=== PATIENT | female | born 1980 | race Caucasian/White ===

== ENCOUNTER 2023-10-01 06:11 | Emergency (ER) | payer OTHER, SELFPAY ==
[2023-10-01 06:14] VITALS: BP 107/74
[2023-10-01] MEDS: NSS 500 IV (07:03)
--- NOTE | 2023-10-01 07:12 | ED.GENMED ---
History of Present Illness
General
Chief Complaint: Breathing Problem
Source: patient
Exam Limitations: none
Time Seen by Provider: 10/01/23 06:45
Nursing documentation reviewed up to this point in time: agreed with
Travel History
Have you had any contact with someone who has COVID-19?: No
Do you have any symptoms of coronavirus? Fever > 100 degrees, chills, cough, shortness of breath, sore throat, loss of taste or smell, muscle aches, or headache?: No
History of Present Illness
History of Present Illness:
Patient presents to ED secondary to 3-day history of persistent cough, along with shortness of breath and multiple vomiting episodes, associated with coughing spells. Denies fever or chills. Denies diarrhea. Denies chest pain. Denies back pain.
Denies leg pain or swelling. Denies recent travel or surgery. Denies sick contact. Denies recent travel. Patient does not have any significant past medical history.
Review of Systems
Review of Systems
Allergies reviewed?: Yes
All Other Systems: ROS reviewed and negative except as documented in HPI and ROS
Constitutional: Reports no symptoms
EENT: Reports no symptoms
Respiratory: Reports cough and trouble breathing
Cardiac: Reports no symptoms; Denies chest pain
ABD/GI: Reports abdominal pain, nausea and vomiting; Denies diarrhea
: Reports no symptoms
Musculoskeletal: Reports no symptoms; Denies edema
Skin: Reports no symptoms
Neurological: Reports no symptoms
Phy Exam
Physical Exam
Physical Exam:
Physical Exam
General: no apparent distress, not acutely ill. afebrile
Head: nc/at. eomi
Neck: supple. no meningeal signs.
Heart: s1/s2 regular rate and rhythm, no murmur. equal radial pulses.
Lungs: no acute respiratory distress. clear bilaterally
Abdomen: normal bowel sounds. not tender.
Neuro: alert and oriented. no focal neurological deficits
Skin: no rash
Psychiatric: well kept. interactive and cooperative
Extremities: no edema. no calf tenderness.
Course
Orders/Labs/Results
Orders:
Orders
10/01/23 06:51
0.9% Sodium Chloride 500 ml [Nss] 500 ml IV BOLUS
Guaifenesin/Codeine Solution [Robitussin AC] 10 ml PO NOW STA
Ketorolac [Toradol] 30 mg IV NOW STA
CR Chest - 2 Views Urgent
Comment:
Reason For Exam: cough/sob
10/01/23 07:06
Basic Metabolic Panel Urgent
Complete Blood Count/With Diff Urgent
D-Dimer Urgent
HCG, Serum Qualitative Screen Urgent
Comment: ADD ON
Lipase Urgent
10/01/23 07:43
Add On- LAB Urgent
Tests Added?: serum b-hcg, qualitative
Abnormal Lab Results
10/01/23
07:06
D-Dimer 0.51 H ug/mlFEU
(0.00-0.50)
Chloride 109 H mmol/L
(98-107)
Creatinine 0.5 L mg/dL
(0.6-1.0)
Glucose 119 H mg/dl
(70-99)
10/01/23 07:06
10/01/23 07:06
Vital Signs
Initial and Last Documented VS:
Initial Vital Signs
Temp Pulse Resp BP Pulse Ox
97.4 F 74 22 107/74 100
10/01/23 06:14 10/01/23 06:14 10/01/23 06:14 10/01/23 06:14 10/01/23 06:14
Last Documented Vital Signs
Temp Pulse Resp BP Pulse Ox
98.4 F 58 16 88/57 99
10/01/23 09:41 10/01/23 09:41 10/01/23 10:54 10/01/23 09:41 10/01/23 09:41
MDM/Problems Addressed
MDM/Problems Addressed:
Patient with an unremarkable workup in ED, including blood work and chest x-ray. Patient's presenting symptoms likely secondary to ongoing viral upper respiratory infection. As patient is afebrile, hemodynamically stable, without wheezing, without
any evidence of respiratory distress nor dehydration, patient will be discharged home with recommendation for supportive treatment, including continued hydration at home along with cough medication. No indication for antibiotics at this time.
*Critical Care Note
Total Time (30-74mins, 75-104mins- exclusive of procedures): Not Applicable
ED Attending Note
-
Portions of this chart may have been created with voice recognition software.� Occasional wrong word or��sound alike� substitutions may have occurred due to the inherent limitations of voice recognition software.
Discharge Plan
Departure
Patient Disposition: Home (Routine Discharge)
Date of Disposition: 10/01/23
Time of Disposition: 10:41
Patient with high blood pressure during this ER visit?: No
Discharge Problem:
URI (upper respiratory infection)
Instructions: Upper Respiratory Infection ED
Prescriptions:
New
benzonatate 200 mg capsule
200 mg PO TID Qty: 14 0RF
Referrals:
UNKNOWN - PT DOES,NOT KNOW [Family Provider] -
Activity Restrictions/Additional Instructions:
As discussed, please follow-up with your primary care physician with any further concerns. In ED, CXR did not reveal any acute findings. Your prescription has been sent electronically to [facility] in [place].
Interventions
Interventions:
*Risk Screen - Suicide Last Done: 10/01/23 06:49
*General Assessment Last Done: 10/01/23 06:49
*Neglect/Abuse Screening Last Done: 10/01/23 06:49
ED- Fall Risk Assessment Last Done: 10/01/23 06:49
*ED COVID-19 Vaccine History Last Done: 10/01/23 06:49
*Nursing Disposition Last Done: 10/01/23 10:54
ED- Cardiac Assessment Last Done: 10/01/23 06:49
ED- Pulmonary Assessment Last Done: 10/01/23 06:49
Discharge Date and Time
Discharge Date/Time: 10/01/23 10:55
[2023-10-01 07:15] LABS: % Basophils 0.5 % (0-2); % Eosinophils 1.1 % (0-6); % Immature Granulocytes 0.2 % (0-0.5); % Lymphocytes 29.2 % (20.5-51.1); % Monocytes 6.9 % (1.7-9.3); % Neutrophils 62.1 % (42.2-75.2); Absolute Eosinophils 0.1 10^3/uL (0-0.7); Absolute Lymphocytes 1.7 10^3/uL (1.2-3.4); Absolute Monocytes 0.4 10^3/uL (0.1-0.6); Absolute Neutrophils 3.5 10^3/uL (1.4-6.5); Hematocrit 40.9 % (37.0-47.0); Hemoglobin 13.6 g/dL (12.0-16.0); Mean Corp Hgb Conc. 33.3 g/dL (33.0-37.0); Mean Corpuscular Hgb 29.2 pg (27.0-31.0); Mean Corpuscular Volume 87.8 fL (81.0-99.0); Mean Platelet Volume 8.7 fL (7.4-10.4); Nucleated Red Blood Cells % 0 %; Platelet Count 244 10^3/uL (130-400); Red Blood Cell Count 4.66 10^6/uL (4.20-5.40); Red Cell Dist. Width 12.3 % (11.5-14.5); White Blood Cell Count 5.7 10^3/uL (4.8-10.8)
[2023-10-01] MEDS: TORADOL 30 MG IV (07:25)
[2023-10-01] MEDS: ROBITUSSIN AC 10 ML PO (07:25)
[2023-10-01 07:29] LABS: Blood Urea Nitrogen 9 mg/dl (7-17); Calcium 8.9 mg/dl (8.4-10.2); Carbon Dioxide 25 mmol/L (22-30); Chloride 109 mmol/L (98-107); Glucose 119 mg/dl (70-99); Lipase 159 U/L (23-300); Potassium 4.1 mmol/L (3.5-5.1); Sodium 138 mmol/L (135-145); eGFR > 60.00
[2023-10-01 07:30] LABS: D-Dimer 0.51 ug/mlFEU (0.00-0.50)
[2023-10-01 08:42] LABS: HCG, Serum Qualitative Screen Negative
[2023-10-01 09:41] VITALS: BP 88/57
== END 2023-10-01 10:55 | disposition home or self-care (01) ==
LOC: EMR 06:11
PROVIDERS: EMERGENCY PHYSICIAN Emergency Medicine
DX: J06.9 Acute upper respiratory infection, unspecified (principal)
CPT/HCPCS: 99284; 96374; 71046; 80048; 83690; 84703; 85025; 85379

== ENCOUNTER 2024-08-30 19:32 | Emergency (ER) | payer OTHER, SELFPAY ==
[2024-08-30 19:39] VITALS: BP 98/66
[2024-08-30 20:24] LABS: % Basophils 0.2 % (0-2); % Eosinophils 0.8 % (0-6); % Immature Granulocytes 0.2 % (0-0.5); % Lymphocytes 40.7 % (20.5-51.1); % Monocytes 8.4 % (1.7-9.3); % Neutrophils 49.7 % (42.2-75.2); Absolute Monocytes 0.4 10^3/uL (0.1-0.6); Absolute Neutrophils 2.4 10^3/uL (1.4-6.5); Hematocrit 40.8 % (37.0-47.0); Hemoglobin 13.8 g/dL (12.0-16.0); Mean Corp Hgb Conc. 33.8 g/dL (33.0-37.0); Mean Corpuscular Hgb 29.2 pg (27.0-31.0); Mean Corpuscular Volume 86.4 fL (81.0-99.0); Mean Platelet Volume 8.5 fL (7.4-10.4); Nucleated Red Blood Cells % 0 %; Platelet Count 166 10^3/uL (130-400); Red Blood Cell Count 4.72 10^6/uL (4.20-5.40); Red Cell Dist. Width 11.9 % (11.5-14.5); White Blood Cell Count 4.9 10^3/uL (4.8-10.8)
[2024-08-30 20:40] LABS: COVID-19 Antigen Negative (Negative)
[2024-08-30 20:43] LABS: ALT (SGPT) 29 U/L (0-35); AST (SGOT) 30 U/L (14-36); Albumin 4.1 g/dl (3.5-5.0); Alkaline Phosphatase 78 U/L (38-126); Blood Urea Nitrogen 11 mg/dl (7-17); Calcium 8.5 mg/dl (8.4-10.2); Carbon Dioxide 28 mmol/L (22-30); Chloride 101 mmol/L (98-107); Glucose 127 mg/dl (70-99); Sodium 137 mmol/L (135-145); Total Bilirubin 0.7 mg/dl (0.2-1.3); Total Protein 7.1 g/dl (6.3-8.2); eGFR > 60.00
[2024-08-30 20:52] LABS: HCG, Serum Qualitative Screen Negative
--- NOTE | 2024-08-30 23:58 | ED.GENMED ---
History of Present Illness
General
Chief Complaint: Cold/Flu/URI Symptoms
Source: patient and family
Exam Limitations: none
Time Seen by Provider: 08/30/24 21:59
Nursing documentation reviewed up to this point in time: agreed with
History of Present Illness
History of Present Illness:
43-year-old female presenting to the emergency department with upper respiratory symptoms headache body aches over the past 6 days. Has some mild discomfort when coughing but denies any ongoing chest pain no shortness of breath.
Review of Systems
Review of Systems
Allergies reviewed?: Yes
All Other Systems: ROS reviewed and negative except as documented in HPI and ROS
Phy Exam
Physical Exam
Physical Exam:
GENERAL: Alert , in no apparent distress
EYE: pupils equal and reactive
NECK: Supple, no significant adenopathy.
ENT: o/p clr, mmm.
CARDIAC: Regular rate and rhythm .
LUNGS: Hacking cough clear breath sounds bilaterally, no acute respiratory distress, no wheezes/rales/rhonchi
ABDOMEN: Soft, without focal tenderness, no r/g, no cvat
NEUROLOGICAL: Alert and oriented, no focal neuro deficits
SKIN: Warm and dry, skin intact.
MUSCULOSKELETAL: No edema, well perfused.
PSYCH: Normal and appropriate interaction.
Sepsis
Sepsis Screening
Sepsis Assessment: Sepsis Ruled Out
Sepsis Screen
Sepsis Screen: Sepsis Ruled Out
Date: 08/31/24
Time: 00:00
Course
Orders/Labs/Results
Orders:
Orders
08/30/24 19:44
Test Result ONCE
08/30/24 20:07
COVID-19 Antigen Urgent
Source: Nasal Swab
Complete Blood Count/With Diff Urgent
Comprehensive Metabolic Panel Urgent
HCG, Serum Qualitative Screen Urgent
INF RAPID [Influenza A+B Rapid Molecular] Urgent
LEONOR Source: Nasal Swab
Specimen Description:
08/30/24 22:29
Chest [CR Chest - 2 Views ] Urgent
Comment:
Reason For Exam: cough right cp
08/30/24 23:57
Dexamethasone [Decadron] 10 mg PO NOW STA
Abnormal Lab Results
08/30/24
20:07
Creatinine 0.5 L mg/dL
(0.6-1.0)
Glucose 127 H mg/dl
(70-99)
08/30/24 20:07
08/30/24 20:07
Vital Signs
Initial and Last Documented VS:
Initial Vital Signs
Temp Pulse Resp BP Pulse Ox
99.2 F 72 22 98/66 99
08/30/24 19:39 08/30/24 19:39 08/30/24 19:39 08/30/24 19:39 08/30/24 19:39
Last Documented Vital Signs
Temp Pulse Resp BP Pulse Ox
99.2 F 72 22 98/66 99
08/30/24 19:39 08/30/24 19:39 08/30/24 19:39 08/30/24 19:39 08/30/24 19:39
MDM/Problems Addressed
MDM/Problems Addressed:
43-year-old female presenting to the emergency department with ongoing upper respiratory symptoms over the past 6 days. On arrival here vital signs are normal patient no distress patient does have a hacking cough chest x-ray without evidence of
pneumonia. Otherwise patient stable for outpatient management return precautions given.
*Critical Care Note
Total Time (30-74mins, 75-104mins- exclusive of procedures): Not Applicable
ED Attending Note
-
Portions of this chart may have been created with voice recognition software.� Occasional wrong word or��sound alike� substitutions may have occurred due to the inherent limitations of voice recognition software.
Discharge Plan
Departure
Patient Disposition: Home (Routine Discharge)
Date of Disposition: 08/31/24
Time of Disposition: 00:00
Patient with high blood pressure during this ER visit?: No
Condition: Good
Covid-19: Not Applicable
Discharge Problem:
Influenza
Instructions: Flu
Prescriptions:
No Action
benzonatate 200 mg capsule
200 mg PO TID Qty: 14 0RF
Referrals:
NONE,* [Family Provider] -
Activity Restrictions/Additional Instructions:
You came to the emergency department today with concerns of the flu. Please rest over the next few days as symptoms will hopefully improve. Return for any worsening, new or concerning symptoms peer
Interventions
Interventions:
*Risk Screen - Suicide Last Done: 08/30/24 19:39
*General Assessment Last Done: 08/30/24 22:08
*Neglect/Abuse Screening Last Done: 08/30/24 19:39
ED- Fall Risk Assessment Last Done: 08/30/24 22:08
*ED COVID-19 Vaccine History Last Done: 08/30/24 22:08
ED- Pulmonary Assessment Last Done: 08/30/24 22:08
Discharge Date and Time
Print Language: [facility] [place]
[2024-08-31] MEDS: DECADRON 10 MG PO (00:08)
== END 2024-08-31 00:17 | disposition home or self-care (01) ==
LOC: EMR 19:32
PROVIDERS: Emergency Medicine; EMERGENCY PHYSICIAN Emergency Medicine
DX: J10.1 Influenza due to other identified influenza virus with other respiratory manifestations (principal); Z11.52 Encounter for screening for COVID-19
CPT/HCPCS: 99284; 71046; 80053; 84703; 85025; 87502; 87811